=== PATIENT | female | born 1960 | race Caucasian/White ===

== ENCOUNTER 2018-06-29 15:15 | Emergency (ER) | payer MEDICARE ==
[~2018-06-29] VITALS: Ht 165.1 cm; Wt 98.0 kg
[2018-06-29] MEDS ORDERED: BACTRIM DS TAB1 EACH PO (16:41)
[2018-06-29] MEDS ORDERED: HIBICLENS120 ML TOP (16:43)
[2018-06-29 17:57] VITALS: BP 121/81
== END 2018-06-29 17:43 | disposition home or self-care (01) ==
LOC: ER 15:15
DX: Z03.89 Encounter for observation for other suspected diseases and conditions ruled out (principal)
CPT/HCPCS: 99282

== ENCOUNTER 2018-08-10 13:13 | Emergency (ER) | payer MEDICARE ==
[~2018-08-10] VITALS: Ht 165.1 cm; Wt 98.0 kg
[~2018-08-10 13:13] MED LIST: BACTRIM DS TAB1 EACH PO; HIBICLENS120 ML TOP
--- NOTE | 2018-08-10 13:50 | NUR ---
DR. HURT DID ASSESS PT WHILE IN TRIAGE. PT VERY ANXIOUS AND STATES SHE IS ONLY HERE TO HAVE US CALL DR. CASAS'S OFFICE TO GET HER AN APPT. TO TALK ABOUT PACEMAKER. DR. HURT DID CALL AND SPOKE TO DR. CASAS PERSONALLY WHO STATES HE WILL HAVE HIS OFFICE CALL PT RIGHT NOW TO MAKE APPT. PT AWARE OF THIS. PT TO BE DISCHARGED HOME TO F/U AND IS AWARE OF THIS. INSTRUCTED PT TO WAIT IN LOBBY FOR DISCAHRGE PAPERS WIT ER FAMILY.
--- NOTE | 2018-08-10 14:05 | NUR ---
ATTEMPTED TO DISCHARGE PT AND UNABLE TO LOCATE PT OR HER FAMILY. INFORMED BY SHEKHAR, TOWER TECHNICIAN, THAT PT LEFT OUT OF ER INTO PARKING LOT. DID CHECK IN PARKING LOT AND UNABLE TO LOCATE PT AT THIS TIME. INFORMED DR. HURT OF PT ELOPING.
== END 2018-08-10 14:00 | disposition home or self-care (01) ==
LOC: ER 13:13
DX: R00.2 Palpitations (principal); F41.1 Generalized anxiety disorder
CPT/HCPCS: 99282